=== PATIENT | female | born 1965 | race Caucasian/White ===

== ENCOUNTER 2020-05-03 06:00 | Emergency (ER) | payer OTHER ==
--- NOTE | 2020-05-03 06:07 | ED Physician Documentation ---
PD HPI FOCAL NEURO - Stated complaint Stated Complaint: STROKE SYMPTOMS - History obtained from History obtained from: Patient - History of Present Illness Timing - onset: Enter time (05:30), Today Timing - details: Abrupt onset Severity of deficit: Mild Weakness: Foot, Left Numbness: Face, Foot, Left Associated symptoms: Headache (mild left-sided headache). No: Nausea / vomiting, Head injury, Chest pain, Neck pain, Fever Contributing factors: negative: Anticoagulated, Vascular dz, Atrial fibrillation, Prosthetic heart valve Baseline status: positive: A&OX3, ambulatory, indep Similar symptoms before: Has not had sx before Recently seen: Not recently seen - Additional information Additional information: patient woke approximately 4 AM this morning feeling well, was then driving to work at approximately 5:30 AM when she had sudden onset left facial numbness, left foot numbness and weakness. She also describes left-sided headache, mild and described as "fullness" by patient. Denies h/o similar symptoms. She drove self to ED. Review of Systems Constitutional: reports: Reviewed and negative Eyes: reports: Reviewed and negative Ears: reports: Reviewed and negative Nose: reports: Reviewed and negative Throat: reports: Reviewed and negative Cardiac: reports: Reviewed and negative Respiratory: reports: Reviewed and negative GI: reports: Reviewed and negative : denies: Incontinent Skin: denies: Rash Musculoskeletal: reports: Reviewed and negative Neurologic: reports: Focal weakness, Numbness, Headache. denies: Generalized weakness, Difficulty speaking, Head injury PD PAST MEDICAL HISTORY - Past Medical History Past Medical History: No - Past Surgical History Past Surgical History: No - Present Medications Home Medications: Ambulatory Orders Medication Instructions Recorded Confirmed No Known Home Medications 05/03/20 05/03/20 - Allergies Allergies/Adverse Reactions: Allergies Allergy/AdvReac Type Severity Reaction Status Date / Time No Known Drug Allergies Allergy Verified 05/03/20 06:15 - Living Situation Living Arrangement: reports: At home - Social History Does the pt smoke?: No PD ED PE NORMAL - Vitals Vital signs reviewed: Yes - General General: Alert and oriented X 3, No acute distress, Well developed/nourished - HEENT HEENT: PERRL, EOMI, Moist mucous membranes - Neck Neck: Supple, no meningeal sign - Cardiac Cardiac: RRR, No murmur, No gallop, No rub - Respiratory Respiratory: No respiratory distress, Clear bilaterally - Abdomen Abdomen: Soft, Non tender - Derm Derm: Normal color, Warm and dry, No rash - Extremities Extremities: No edema - Neuro Neuro: Alert and oriented X 3, Normal speech Eye Opening: Spontaneous Motor: Obeys Commands Verbal: Oriented GCS Score: 15 NIHSS - Time Time: 06:20 - Level of Consciousness Level of consciousness: (0) Alert, Keenly responsive LOC Questions: (0) Answers both Q's correct LOC Commands: (0) Performs both correctly - Gaze Best Gaze: (0) Normal - Visual Visual: (0) No loss - Facial Palsy Facial Palsy: (0) Normal, symmetrical movement - Motor Arms (both separate) Motor Arm (right): (0) No drift Motor Arm (left): (0) No drift - Motor Legs (both separate) Motor Leg (right): (0) No drift Motor Leg (left): (0) No drift - Limb Ataxia Limb Ataxia: (0) Absent - Sensory Sensory: (1) Jfhn-kw-zxvpmpra loss (decreased LTS left foot, lower leg when compared to right; decreased LTS left face when compared to right although in narrow distribution (left infraorbital to left preauricular)) - Best Language Best Language: (0) No aphasia - Dysarthria Dysarthria: (0) Normal - Extinction and Inattention (formally neg Extinction and inattention: (0) No abnormality - Total Score/Results Total Score/Result: 1 Results - Vitals Vitals: Vital Signs - 24 hr 05/03/20 05/03/20 05/03/20 06:11 06:18 06:45 Temperature 36.6 C 36.6 C Heart Rate 99 99 77 Respiratory 16 16 10 L Rate Blood Pressure 169/107 H 169/107 H 158/98 H O2 Saturation 100 100 100 05/03/20 07:15 Temperature Heart Rate 79 Respiratory 18 Rate Blood Pressure 141/95 H O2 Saturation 99 Oxygen O2 Source Room air - Labs Labs: Laboratory Tests 05/03/20 05/03/20 05/03/20 06:10 06:10 06:10 WBC 6.1 RBC 4.56 Hgb 14.3 Hct 43.9 MCV 96.3 MCH 31.4 H MCHC 32.6 RDW 12.7 Plt Count 176 MPV 10.5 Neut # (Auto) 2.9 Lymph # (Auto) 1.8 [place] # (Auto) 0.5 Eos # (Auto) 0.8 H Baso # (Auto) 0.1 Absolute Nucleated RBC 0.00 Nucleated RBC % 0.0 PT 11.2 INR 1.0 APTT 27.1 Sodium 137 Potassium 3.6 Chloride 101 Carbon Dioxide 25 Anion Gap 11.0 BUN 26 H Creatinine 0.8 Estimated GFR (MDRD) 74 L Glucose 110 H Calcium 9.6 Total Bilirubin 0.9 AST 21 ALT 16 Alkaline Phosphatase 45 Total Protein 8.1 Albumin 4.6 Globulin 3.5 Albumin/Globulin Ratio 1.3 Lipase 34 - Rads (name of study) CTA head Radiology: Prelim report reviewed, See rad report CTA neck Radiology: Prelim report reviewed, See rad report PD MEDICAL DECISION MAKING - ED course Complexity details: reviewed results, re-evaluated patient, considered differential, d/w patient - Consults Consults: Discussed case with (neurologist content manager for telestroke), Other (d/w neurologist content manager for telestroke; he recommends NOT giving tPA, as the deficit is mild (decreased LTS on left; c/o weakness LLE but no weakness on exam)) - TPA CVA checklist Inclusion crititeria: positive: Sig neuro deficit, CT no bleed, Onset know < 4.5 hr Absolute contraindications: negative: SBP>185 DBP>110 s/p tx, CT shows bleed, CT shows major est CVA, Platelets <100K, PTT > 40, INR >1.7, Known bleeding disorder, Surgery/trauma < 15 days, Seizure at onset, Internal bleed < 22 days, Brain/spine surg < 3 m, Head trauma < 3 m, CVA < 3 months, Any hx ICH, Any hx brain aneurysm, Any hx brain AVM, Any hx brain tumor, Suspect SAH Relative contraindications: positive: Too mild Departure - Departure Disposition: 02 Transfer Acute Care Hosp Clinical Impression: Cerebrovascular accident (CVA) Qualifiers: CVA mechanism: unspecified Qualified Code(s): I63.9 - Cerebral infarction, unspecified Condition: Stable
[2020-05-03 06:36] LABS: BASOPHILS # (AUTO) 0.1 10^3/uL (0.0-0.1); BASOPHILS % (AUTO) 1.2 %; EOSINOPHILS # (AUTO) 0.8 10^3/uL (0.0-0.7); EOSINOPHILS % (AUTO) 13.1 %; HCT - HEMATOCRIT 43.9 % (37.0-47.0); HGB - HEMOGLOBIN 14.3 g/dL (12.0-16.0); LYMPHOCYTES # (AUTO) 1.8 10^3/uL (1.5-3.5); LYMPHOCYTES % (AUTO) 29.9 %; MEAN CORPUSCULAR HEMOGLOBIN 31.4 pg (27.0-31.0); MEAN CORPUSCULAR HGB CONC 32.6 g/dL (32.0-36.0); MEAN CORPUSCULAR VOLUME 96.3 fL (81.0-99.0); MEAN PLATELET VOLUME 10.5 fL (7.9-10.8); MONOCYTES # (AUTO) 0.5 10^3/uL (0.0-1.0); MONOCYTES % (AUTO) 8.4 %; NEUTROPHILS # (AUTO) 2.9 10^3/uL (1.5-6.6); NEUTROPHILS % (AUTO) 47.2 %; PLT - PLATELET COUNT 176 10^3/uL (130-450); RED BLOOD COUNT 4.56 10^6/uL (4.20-5.40); RED CELL DISTRIBUTION WIDTH 12.7 % (12.0-15.0); WHITE BLOOD COUNT 6.1 x10^3/uL (4.8-10.8)
[2020-05-03 06:42] LABS: PT - PROTHROMBIN TIME 11.2 secs (9.9-12.6)
[2020-05-03 06:49] LABS: PARTIAL THROMBOPLASTIN TIME 27.1 secs (24.9-33.3)
[2020-05-03] MEDS ORDERED: IOVERSOL 320 100 ML VIAL IVP ONE ×2 (06:54→07:03)
[2020-05-03 07:10] LABS: ALBUMIN 4.6 g/dL (3.2-5.5); ALBUMIN/GLOBULIN RATIO 1.3 (1.0-2.2); BILIRUBIN,TOTAL 0.9 mg/dL (0.2-1.0); CALCIUM 9.6 mg/dL (8.5-10.3); CREATININE 0.8 mg/dL (0.4-1.0); POTASSIUM 3.6 mmol/L (3.5-5.0); TOTAL PROTEIN 8.1 g/dL (6.7-8.2)
--- NOTE | 2020-05-03 07:40 | ED Physician Documentation ---
ED Addendum - Addendum Addendum: 05/03/20 07:[address] Medina at shift change. Briefly this is a 54-year-old woman who lives in the car and was on her way to work this morning when at 530 she developed numbness and tingling in the left side of the face and left leg. Her NIH stroke scale is 1. 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 Telestroke consultation was done by Dr. Medina and the telestroke neurologist did not recommend TPA. I discussed this with the patient and she was in agreement. She says based on our discussion she would not have consented for TPA anyway. We discussed the need for MRI and after discussion she would like us to call [facility] for potential transport since we do not have MRI on the weekends. If [facility] also does not have this capability we will call [facility]. 05/03/20 08:40 [facility] also does not have MRI capability over the weekend and she was subsequently accepted to [facility] by Dr. Wilkerson at the time of this note. Cobras are completed. She is stable for transport. Respiratory PCR is pending. I ordered full-strength aspirin. Disposition: Transferred to [facility] Diagnoses: 1. Strokelike symptoms 05/03/20 08:41
[2020-05-03] MEDS ORDERED: ASPIRIN 325 MG TABLET PO STA (08:40)
--- NOTE | 2020-05-03 08:45 | CT Report ---
PROCEDURE: ANGIO HEAD W/WO INDICATIONS: left facial/LLE paresthesias CONTRAST: IV CONTRAST: Optiray 320 ml: 100 PO CONTRAST: *NO PO CONTRAST TECHNIQUE: Precontrast 4.5 mm thick angled axial sections acquired from the foramen magnum to the vertex. Afte r the administration of intravenous contrast, 1 mm thick sections acquired through the [place] of [place] is. Postcontrast 4.5 mm thick sections then re-acquired from the foramen magnum to the vertex. 3-di mensional ohlutne-nwiseknkx-ostqqmdhnw (MIP) and/or volume rendering reformats were acquired of the c entral intracranial vasculature. For radiation dose reduction, the following was used: automated ex posure control, adjustment of mA and/or kV according to patient size. COMPARISON: None FINDINGS: Image quality: Excellent. Anterior circulation: Intracranial internal carotid arteries are normal in size and flow. The flow within the paired anterior cerebral arteries is normal and symmetric. The flow within the middle cer ebral arteries is normal and symmetric. The anterior communicating artery is seen. No aneurysms are seen. Posterior circulation: Visualized portions of the vertebral arteries demonstrate normal caliber, and join to form a normal appearing basilar artery. Flow within the posterior cerebral arteries is norm al and symmetric. No aneurysms are seen. CSF spaces: Ventricles are normal in size and shape. Basal cisterns are patent. No extra-axial flu id collections. Brain: No midline shift. No intracranial bleeds or masses. [place]-white matter interface appears int act. Skull and face: Calvarium and facial bones appear intact, without suspicious lesions. Sinuses: Visualized sinuses and mastoids are clear. IMPRESSION: Negative CT angiography of the head. Concordant with preliminary interpretation. Reviewed by: Santa Patel MD on 05/03/2020 7:43 AM [facility] Approved by: Santa Patel MD on 05/03/2020 7:43 AM [facility] Station ID: [id number]
--- NOTE | 2020-05-03 08:47 | CT Report ---
PROCEDURE: ANGIO NECK W INDICATIONS: left facial/LLE paresthesias CONTRAST: IV CONTRAST: Optiray 320 ml: 100 PO CONTRAST: *NO PO CONTRAST TECHNIQUE: After the administration of intravenous contrast, 1.5 mm axial sections acquired from the aortic arch to the [place] of [place]. Coronal 3-D maximum intensity projection (MIP) and/or volume rendering ref ormats were then performed. For radiation dose reduction, the following was used: automated exposur e control, adjustment of mA and/or kV according to patient size. COMPARISON: None. FINDINGS: Image quality: Excellent. Carotid system: The great vessels demonstrate a conventional anatomy as they arise from the aortic a rch. The origins of the common carotid arteries appear patent. The common carotid arteries demonstr ate normal calibers and courses. The bifurcation regions appear normal bilaterally. The internal ca rotid arteries demonstrate normal caliber and course. Posterior circulation: The origins of the vertebral arteries appear patent. The more superior porti ons of the vertebral arteries demonstrate normal course and caliber. They join to form a normal appe aring basilar artery. Soft tissues: Visualized neck soft tissues demonstrate no suspicious abnormalities. The thyroid gla nd is normal in size. Bones: No suspicious bony lesions. Visualized cervical spine appears normally aligned. IMPRESSION: Negative CT angiography of the neck. Concordant with preliminary interpretation. The estimate of stenosis included in the report of the imaging study was calculated using the NASCET method Reviewed by: Santa Patel MD on 05/03/2020 7:[address] [facility] Approved by: Santa Patel MD on 05/03/2020 7:[address] [facility] Station ID: [id number]
[2020-05-03 09:28] LABS: B. PARAPERTUSSIS- RESP PCR PAN NOT DETECTED; CORONAVIRUS 229E-RESP PCR NOT DETECTED; CORONAVIRUS HKU1-RESP PCR NOT DETECTED; CORONAVIRUS NL63-RESP PCR NOT DETECTED; CORONAVIRUS OC43-RESP PCR NOT DETECTED; HUMAN METAPNEUMOVIRUS NOT DETECTED; INFLUENZA A- RESP PCR PANEL NOT DETECTED; INFLUENZA B - RESP PCR PANEL NOT DETECTED; PARAINFLUENZA VIRUS 1 NOT DETECTED; PARAINFLUENZA VIRUS 2 NOT DETECTED; PARAINFLUENZA VIRUS 3 NOT DETECTED; PARAINFLUENZA VIRUS 4 NOT DETECTED; RHINOVIRUS/ENTEROVIRUS NOT DETECTED; RSV- RESP PCR PANEL NOT DETECTED; SARS-CoV-2 -RESP PCR PANEL NOT DETECTED
[2020-05-03 09:29] LABS: B. PERTUSSIS- RESP PCR PANEL NOT DETECTED; C. PNEUMONIAE- RESP PCR PANEL NOT DETECTED; M. PNEUMONIAE- RESP PCR PANEL NOT DETECTED
[2020-05-03 09:49] VITALS: BP 146/90
== END 2020-05-03 09:55 | disposition short-term general hospital (02) ==
LOC: ED 06:00
DX: I63.9 Cerebral infarction, unspecified (principal); R29.701 NIHSS score 1; R29.898 Other symptoms and signs involving the musculoskeletal system; R20.0 Anesthesia of skin; R51.9 Headache, unspecified; M47.812 Spondylosis without myelopathy or radiculopathy, cervical region; Z20.822 Contact with and (suspected) exposure to COVID-19
CPT/HCPCS: 0202U; 36415; 70496; 70498; 80053; 83690; 85025; 85610; 85730; 93005; 99285; A9270; Q9967

== ENCOUNTER 2020-05-03 09:54 | Outpatient (CLI) | payer OTHER | END 2020-05-03 09:55 | disposition short-term general hospital (02) | LOC: EMS 09:54 | PROVIDERS: ATTEND Emergency Medicine | DX: I63.9 Cerebral infarction, unspecified (principal) | CPT/HCPCS: A0425; A0428 ==

== ENCOUNTER 2023-01-06 08:00 | Outpatient (CLI) | payer OTHER ==
[2023-01-06 16:39] LABS: BILIRUBIN,URINE NEGATIVE (NEGATIVE); GLUCOSE, URINE (UA) NEGATIVE (NEGATIVE); KETONES,URINE (UA) NEGATIVE (NEGATIVE); LEUKOCYTE ESTERASE, URINE NEGATIVE (NEGATIVE); NITRITE,URINE NEGATIVE (NEGATIVE); OCCULT BLOOD,URINE SMALL (NEGATIVE); PROTEIN,URINE NEGATIVE (NEGATIVE); UROBILINOGEN,URINE 0.2 (NORMAL) E.U./dL (NORMAL)
[2023-01-06 16:49] LABS: BACTERIA,URINE None Seen /HPF (None Seen); CLARITY,URINE CLEAR (CLEAR); RBC,URINE 0-5 /HPF (0-5); SQUAMOUS EPITHELIAL CELL,UR RARE Squamous (<= Few); WBC,URINE 0-3 /HPF (0-5)
== END 2023-01-06 23:59 | disposition home or self-care (01) ==
LOC: LAB 08:00
PROVIDERS: ATTEND Urology
DX: R31.9 Hematuria, unspecified (principal)
CPT/HCPCS: 81001; 87086

== ENCOUNTER 2023-01-18 13:28 | Outpatient (CLI) | payer OTHER ==
[2023-01-18] MEDS: iohexoL-300 100 ML VIAL IVP ONE (14:13)
--- NOTE | 2023-01-18 20:33 | CT Report ---
PROCEDURE: IVP INDICATIONS: HEMATURIA CONTRAST: 140ml omni 300 TECHNIQUE: After the administration of intravenous contrast, 5 mm thick sections acquired from the diaphragms to the symphysis. 5 mm thick coronal and sagittal reformats were acquired. For radiation dose reducti on, the following was used: automated exposure control, adjustment of mA and/or kV according to kinjal ent size. COMPARISON: None. FINDINGS: Image quality: Excellent. Urinary system: Both kidneys are normal in size. No hydronephrosis or nephrolithiasis on pre-contras t images. No solid masses or complex cysts which require follow up. The opacified renal calyces and ureters appear normal, without filling defect. Bladder wall thickness is normal, accounting for unde rdistention. No calcified bladder stones. No filling defect within the opacified bladder. OTHER Lung bases and heart: Unremarkable. Liver: No solid mass. Gallbladder and biliary tree: Cholelithiasis without wall thickening. No biliary dilation. Spleen: No splenomegaly. Pancreas: No pancreatic ductal dilation. Adrenals: No adrenal nodule. Bowel and peritoneum: No bowel distension. No pathologic free fluid. Abdominal Lymph nodes: No central or retroperitoneal adenopathy. Vessels: Unremarkable. Reproductive organs: Unremarkable. Pelvic Lymph nodes: Unremarkable. Bones: No aggressive osseous abnormality. Other: None. IMPRESSION: No CT evidence of genitourinary malignancy. Cholelithiasis without CT evidence of acute cholecystitis. Reviewed by: Shae Celestin MD on 01/18/2023 8:32 PM PST Approved by: Shae Celestin MD on 01/18/2023 8:32 PM PST Station ID: [id number]
== END 2023-01-18 13:29 | disposition home or self-care (01) ==
LOC: DI 13:28
PROVIDERS: ATTEND Urology
DX: R31.9 Hematuria, unspecified (principal)
CPT/HCPCS: 74178; Q9967